=== PATIENT | female | born 1980 | race Caucasian/White ===

== ENCOUNTER → 2019-06-23 | Emergency (ER) | payer OTHER ==
[~2019-06-23] VITALS: Ht 157.5 cm; Wt 74.8 kg
[~2019-06-23] MED LIST: CIPRO500 MG PO; KEFLEX500 MG PO; LEVSIN/SL0.125 MG SL; PEPCID40 MG PO; PROAIR HFA8.5 GM; VENTOLIN HFA18 GM; ZOFRAN4 MG PO
== END | disposition home or self-care (01) ==
LOC: ER 16:16 → CPU-OBS 16:47 → ER 16:47
DX: R07.89 Other chest pain (principal); K29.70 Gastritis, unspecified, without bleeding; N39.0 Urinary tract infection, site not specified; E86.0 Dehydration
CPT/HCPCS: G0378; G0379; 93005; 74177